=== PATIENT | male | born 1985 | race American Indian/Alaskan Native ===

== ENCOUNTER 2017-05-05 11:45 | Emergency (ER) | payer SELFPAY ==
[2017-05-05] MEDS ORDERED: DECADRON ONE (22:58)
== END 2017-05-05 12:08 | disposition left against medical advice (07) ==
LOC: ED 11:45
DX: Z53.21 Procedure and treatment not carried out due to patient leaving prior to being seen by health care provider (principal)
CPT/HCPCS: J1100

== ENCOUNTER 2018-02-23 12:56 | Emergency (ER) | payer OTHER ==
[2018-02-23] MEDS ORDERED: MOTRIN PO ONE (14:14)
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
--- NOTE | 2018-02-23 14:38 | XRay Report ---
CERVICAL SPINE, 3 views: History: Neck pain. Findings: The vertebral bodies, disk spaces, posterior elements and prevertebral soft tissues are unremarkable. The dens is intact. No acute fracture or malalignment is identified. Impression: 1. No evidence for acute injury to the cervical spine.
--- NOTE | 2018-02-23 14:39 | XRay Report ---
LUMBOSACRAL SPINE, 3 VIEWS: History: Back pain Findings: The vertebral bodies, disk spaces and posterior elements are intact. No compression deformity or malalignment. The SI joints are symmetric and unremarkable. Impression: 1. No evidence for acute injury to the lumbar spine.
[2018-02-23 19:21] VITALS: BP 134/62
== END 2018-02-23 19:20 | disposition home or self-care (01) ==
LOC: ED 12:56
DX: S29.011A Strain of muscle and tendon of front wall of thorax, initial encounter (principal); M54.5 Low back pain; M54.2 Cervicalgia; V89.2XXA Person injured in unspecified motor-vehicle accident, traffic, initial encounter; Y93.89 Activity, other specified; Y92.488 Other paved roadways as the place of occurrence of the external cause; Y99.8 Other external cause status
CPT/HCPCS: 71046; 72040; 72100; 99283